=== PATIENT | female | born 1995 | race Caucasian/White ===

== ENCOUNTER 2022-09-05 08:05 | Outpatient (REF) | payer BC, SELFPAY ==
[2022-09-05 14:50] LABS: HCT 35.5 % (36.0-46.0); HGB 11.4 g/dL (11.2-15.7); MCH 26.8 pg (27.0-33.0); MCHC 32.1 % (32.0-36.0); MCV 84 fL (80-95); MPV 10.2 fL (8.0-11.0); Platelet Count 396 10^3/uL (130-400); RBC 4.25 10^6/uL (3.93-5.22); RDW-SD 39.5 fL; WBC 8.28 10^3/uL (4.4-10.8)
[2022-09-05 15:05] LABS: ALT 18 U/L (14-59); AST 23 U/L (15-37); Albumin 4.1 g/dL (3.4-5.0); Alkaline Phosphatase 59 U/L (46-116); Anion Gap 9.5 mmol/L (3-11); BUN 12 mg/dL (7-18); Bilirubin, Total 0.3 mg/dL (0.2-1.0); CO2 24.5 mmol/L (21.0-32.0); CREATININE 0.8 mg/dL (0.55-1.02); Calcium 9.3 mg/dL (8.5-10.1); Calculated LDL 104 mg/dL (<100); Chloride 104 mmol/L (98-107); Cholesterol 170 mg/dL (<200); Estimated GFR 104.15 (mL/min/1.73m2); Glucose 100 mg/dL (74-106); HDL Cholesterol 49 mg/dL (40-60); Potassium 4.1 mmol/L (3.5-5.1); Sodium 138 mmol/L (136-145); Triglyceride 87 mg/dL (<150)
[2022-09-05 15:53] LABS: Hemoglobin A1C 5.4 % (<5.7)
== END 2022-09-05 08:06 | disposition home or self-care (01) ==
LOC: NCHCN 08:05
PROVIDERS: PCP Nurse Practitioner Family; Visit Provider Nurse Practitioner Family
DX: Z00.00 Encounter for general adult medical examination without abnormal findings (principal); N92.6 Irregular menstruation, unspecified; Z13.220 Encounter for screening for lipoid disorders; Z13.1 Encounter for screening for diabetes mellitus; Z83.3 Family history of diabetes mellitus
CPT/HCPCS: 80053; 80061; 85027; 83036

== ENCOUNTER 2022-10-02 11:13 | Outpatient (CLI) | payer BC, SELFPAY ==
[2022-10-02 11:14] LABS: TSH (W/Ref FT4) 1.98 uIU/mL (0.36-3.74)
== END 2022-10-02 11:14 | disposition home or self-care (01) ==
LOC: LBO 11:14
PROVIDERS: PCP Nurse Practitioner Family; Visit Provider Nurse Practitioner Women's Health
DX: N93.9 Abnormal uterine and vaginal bleeding, unspecified (principal)
CPT/HCPCS: 36415; 84443

== ENCOUNTER 2024-04-23 16:04 | Outpatient (REF) | payer BC, SELFPAY | END 2024-04-23 16:05 | disposition home or self-care (01) | LOC: LBN 16:04 | PROVIDERS: PCP Physician Assistant; Visit Provider Physician Assistant | DX: J02.9 Acute pharyngitis, unspecified (principal) | CPT/HCPCS: 87070 ==

== ENCOUNTER 2025-03-16 11:35 | Outpatient (REF) | payer BC, SELFPAY ==
--- NOTE | 2025-03-16 08:00 | PAPFT_PTH ---
PATIENT: Bessy Millan LOC: [facility] U#:[id number] AGE/SX: 29/F ROOM: RE03/16/[address]: ARIE: 1995 BED: DIS: 03/16/2025 SPEC #: [id number] RECD: 03/16/25 17:13 STATUS: DIMITRIS HOLT #: [id number] TIA: 03/16/25 08:[address]: Vicki Reeves DEPT: [facility] Cytology RECD BY: Isabella Rodriguez ENTERED: 03/16/25 17:13 SP TYPE: PAPFT CEM DR: Unknown,Unknown Tissues: 1 - CX/ENDOCX FOR PAP SMEARS Procedures: PAP THIN PREP/[facility] Screening HPV DNA PROBE Comments: [id number] (HPV 16 & 18/45)
[2025-03-17 13:45] LABS: Bacterial Vaginosis (BV) Negative (Negative); Candida glabrata Negative (Negative); Candida species group Negative (Negative)
== END 2025-03-16 11:36 | disposition home or self-care (01) ==
LOC: NCHCN 11:35
PROVIDERS: Visit Provider Family Medicine
DX: Z12.4 Encounter for screening for malignant neoplasm of cervix (principal); N89.8 Other specified noninflammatory disorders of vagina
CPT/HCPCS: 81513; 87481; 87661; 88142; 87624